=== PATIENT | female | born 1985 | race Caucasian/White ===

== ENCOUNTER 2018-07-16 10:46 | Emergency (ER) | payer OTHER | END 2018-07-16 12:01 | disposition home or self-care (01) | LOC: M ED 10:46 | DX: F43.9 Reaction to severe stress, unspecified (principal); Z88.5 Allergy status to narcotic agent; Z88.8 Allergy status to other drugs, medicaments and biological substances; Z88.0 Allergy status to penicillin; Z79.2 Long term (current) use of antibiotics | CPT/HCPCS: 99284 ==

== ENCOUNTER → 2019-06-08 | Outpatient (REF) | payer OTHER ==
[~2019-06-08] MED LIST: CLIN150C OR; DOXY100C37; DOXY50CA4; METR-265; NEUR100C PO; OXYC10TA12 OR; PENNSAID DROPS TOP; PERC5TAB8 PO; TIZA6CAP8 OR; ULTRTA OR; ZIPSOR PO
[2019-06-08 16:52] LABS: INFLUENZA A AMPLIFICATION NEGATIVE (NEGATIVE); INFLUENZA B AMPLIFICATION NEGATIVE (NEGATIVE)
== END ==
LOC: M LAB REF 11:20
PROVIDERS: ATTEND Nurse Practitioner Family
DX: J11.1 Influenza due to unidentified influenza virus with other respiratory manifestations (principal)

== ENCOUNTER 2019-09-26 22:30 | Emergency (ER) | payer OTHER ==
[~2019-09-26] VITALS: Ht 152.4 cm; Wt 78.2 kg
[2019-09-26] MEDS ORDERED: TRAZ-252 PO (22:43)
[2019-09-26] MEDS ORDERED: CYMB1CAP4 PO (22:43)
[2019-09-27] MEDS ORDERED: CYCLOBENZAPRINE 5MG TABLET PO ONE (00:15)
[2019-09-27] MEDS ORDERED: KETOROLAC 30 MG/ML VIAL (J1885) IM ONE (00:15)
[2019-09-27] MEDS ORDERED: LIDOCAINE 5% (LIDODERM) PATCH TD ONE (01:15)
[2019-09-27 01:22] VITALS: BP 132/70
[2019-09-27] MEDS ORDERED: LIDO5DIS41 TOP (01:43)
[2019-09-27] MEDS ORDERED: CYCL5TAB PO (01:43)
[2019-09-27] MEDS ORDERED: **NOTE PATIENT COMMENT** MISC XX SCH (21:00)
== END 2019-09-27 02:08 | disposition home or self-care (01) ==
LOC: M ED 22:30
DX: M54.2 Cervicalgia (principal); M62.838 Other muscle spasm; F17.210 Nicotine dependence, cigarettes, uncomplicated; Z79.899 Other long term (current) drug therapy; Z88.0 Allergy status to penicillin; Z88.5 Allergy status to narcotic agent; Z88.1 Allergy status to other antibiotic agents; Z88.4 Allergy status to anesthetic agent
CPT/HCPCS: 96372; 99283; J1885